=== PATIENT | female | born 1990 | race Caucasian/White ===

== ENCOUNTER 2017-08-23 23:45 | Emergency (ER) | payer BC ==
--- NOTE | 2017-08-24 00:06 | ED Physician Documentation ---
GI Bleed - HISTORIAN Historian: patient - HPI Stated Complaint: abd pain Chief Complaint: Abdominal Pain Onset: days ago (3) Timing: gradual onset Severity: mild Further Comments: yes (She reports she has chronic pancreatitis. She states "everywhere I go they just give me the pain meds b/c my labs will never be high anymore because its chronic" . she states the pain is "unbearable" . She reports she has not been eating much to rest her belly. She denies any nausea or vomiting. No diarrhea. She is in a treatment center here for alcoholism) - Associated Symptoms Abdominal Pain: cramping, burning, severe, epigastric Other Related Symptoms: back pain (pain radiates through to back ). denies: nausea, vomiting - ROS CONST: no problems SKIN/LYMPH: denies: rash MS: none NEURO/PSYCH: denies: headache - PAST HX Past History: other (alcoholism ) Other History: pancreas disease (she reports chronic pancreatitis ) Surgeries/Procedures: none Allergies/Adverse Reactions: Allergies Allergy/AdvReac Type Severity Reaction Status Date / Time No Known Allergies Allergy Verified 08/24/17 00:20 Home Medications: Ambulatory Orders Medication Instructions Recorded Carbamazepine [Tegretol] 200 mg PO TID 08/24/17 Cyclobenzaprine HCl [Flexeril] 5 mg PO TID 08/24/17 Hydroxyzine Pamoate [Vistaril] 25 mg PO Q6 PRN 08/24/17 Ondansetron HCl Rapdis [Zofran ODT] 4 mg PO Q6 PRN 08/24/17 - SOCIAL HX Smoking History: cigarettes Alcohol Use: heavy Drug Use: none - FAMILY HX Family History: none - VITAL SIGNS Vital Signs: Vital Signs Temp Pulse Resp BP Pulse Ox 98 F 112 H 112 H 127/96 99 08/23/17 23:51 08/23/17 23:51 08/23/17 23:51 08/23/17 23:51 08/23/17 23:51 - REVIEWED ASSESSMENTS Nursing Assessment Reviewed: No Vitals Reviewed: No Progress - Progress Progress: 0048: states she does not want to stay for treatment if we cannot assure her pain medication. She states every other hospital gives her pain meds as soon as she comes. She is refusing to allow any further work up and would like to leave the facility DG ED Results Lab/Radiology - Orders Orders: ED Orders Category Date Time Status Place IV Lock 1T Care 08/24/17 00:30 Ordered CBC/PLATELET/DIFF Stat Lab 08/24/17 00:30 Ordered CMP Stat Lab 08/24/17 00:30 Ordered LIPASE Stat Lab 08/24/17 Ordered SERUM HCG Stat Lab 08/24/17 Ordered UA W/MICRO IF INDICATED Routine Lab 08/24/17 00:32 Ordered UDS [DRUG SCREEN URINE MEDICAL ONLY] Routine Lab 08/24/17 Ordered Abdominal Pain Physical Exam - Physical Exam General Appearance: alert, moderate distress (crying and yelling that no one is helping her ) EENT: eye inspection normal NECK: normal inspection RESPIRATORY: no resp distress, chest non-tender, breath sounds normal CVS: reg rate & rhythm, heart sounds normal, equal pulses, no murmur ABDOMEN: soft, normal bowel sounds, no distension, tenderness (epigastric area with palpation ), guarding (diffusely ) SKIN: warm/dry, normal color EXTREMITIES: non-tender, normal range of motion, no evidence of injury, no edema NEURO: oriented X3 Vital Signs: Vital Signs Temp Pulse Resp BP Pulse Ox 98 F 112 H 112 H 127/96 99 08/23/17 23:51 08/23/17 23:51 08/23/17 23:51 08/23/17 23:51 08/23/17 23:51 Discharge Clincal Impression: Abdominal pain Qualifiers: Abdominal location: generalized Qualified Code(s): R10.84 - Generalized abdominal pain Additional Instructions: 1. AMA DG Condition: Stable Disposition: AGAINST MEDICAL ADVICE Decision to Admit: NO Date of Decison to Admit: 08/24/17 Decision Time: 00:49
[2017-08-24 00:11] VITALS: BP 127/96
== END 2017-08-24 00:48 | disposition left against medical advice (07) ==
LOC: ED 23:45
DX: R10.84 Generalized abdominal pain (principal)
CPT/HCPCS: 99283; S1016